=== PATIENT | male | born 1985 | race Caucasian/White ===

== ENCOUNTER 2023-05-24 10:26 | Outpatient (CLI) | payer OTHER, SELFPAY ==
--- NOTE | ~2023-05-24 | XR_ITS ---
EXAMINATION: XR abdomen/kub 1V INDICATION: Ureteral stone TECHNIQUE: Supine views of the abdomen were obtained on 2 radiographs. COMPARISON: 05/15/2023 FINDINGS: There has been minimal interval distal migration of the previously described left ureteral stone which now resides between the left L4 and L5 transverse processes. There are multiple phlebolit hs of the pelvis. No additional urolithiasis is identified. The bowel gas pattern is normal. The visu alized lung bases are clear. IMPRESSION: 1. Slight interval distal migration of the left ureteral stone. Reviewed, dictated and finalized at location F.
== END 2023-05-24 10:27 | disposition home or self-care (01) ==
PROVIDERS: PCP Internal Medicine; Visit Provider Nurse Practitioner Adult Health
DX: N20.1 Calculus of ureter (principal)
CPT/HCPCS: 74018

== ENCOUNTER 2023-06-05 10:04 | Outpatient (CLI) | payer OTHER, SELFPAY ==
--- NOTE | ~2023-06-05 | XR_ITS ---
XR abdomen/kub 1V 06/05/2023 10:19 INDICATION: Microhematuria TECHNIQUE: KUB COMPARISON: Comparison to multiple prior studies sequentially, with oldest reviewed study dated 05/04. FINDINGS: Bowel gas pattern is normal. There is no evidence of free air, mass, organomegaly, ascites or obstruction. No abnormal calculi are seen. The bones appear intact. There are pelvic phlebolith s. There are surgical changes of the right femur. IMPRESSION: 1: No acute abdominal abnormality identified. Reviewed, dictated and finalized at location B.
== END 2023-06-05 10:05 | disposition home or self-care (01) ==
PROVIDERS: PCP Internal Medicine; Visit Provider Nurse Practitioner Adult Health
DX: R31.29 Other microscopic hematuria (principal)
CPT/HCPCS: 74018

== ENCOUNTER 2023-07-04 08:04 | Emergency (ER) | payer OTHER, SELFPAY ==
--- NOTE | 2023-07-04 08:08 | ED.MALEGU ---
HPI - Male Genitourinary General Chief complaint: Urogenital-Male Stated complaint: UTI Time Seen by Provider: 07/04/23 08:08 Source: patient Mode of arrival: ambulatory Limitations: no limitations History of Present Illness HPI Narrative: Patient is a 38-year-old male that presents with left lower abdominal pain. Patient states he was told he had kidney stones bilaterally but past the 1 on the left as of the first of the month. Patient also reports some left testicular pain denies any swelling or tenderness on palpation. Denies any penile discharge, fever, chills, nausea, vomiting, diarrhea. Patient states he took Flomax and oxycodone and pain has improved. Patient states this is different than his normal pain with kidney stones . Patient denies any blood in urine or decreased urine output. Patient also denies any flank pain. Related Data Home Medications Medication Instructions Recorded Confirmed tamsulosin 0.4 mg capsule mg PO 07/04/23 Allergies Allergy/AdvReac Type Severity Reaction Status Date / Time Sulfa (Sulfonamide Allergy Unknown Other Verified 07/04/23 08:16 Antibiotics) Review of Systems Review of Systems: All systems reviewed & are unremarkable except as noted in HPI and below Constitutional: Constitutional: Denies chills, Denies fever(s), Denies headache(s), Denies malaise and Denies weakness Eyes: Eyes: Denies change in vision, Denies eye discharge and Denies irritation ENT: Denies otalgia, Denies headache(s), Denies nasal congestion, Denies nasal discharge, Denies sinus pain and Denies sore throat Cardiovascular: Cardiovascular: Denies chest pain, Denies edema, Denies palpitations and Denies dyspnea Respiratory: Respiratory: Denies cough and Denies dyspnea Gastrointestinal: Gastrointestinal: Reports abdominal pain, Denies diarrhea, Denies nausea and Denies vomiting Genitourinary: Genitourinary: Denies hematuria, Denies oliguria, Denies dysuria, Denies flank pain, Denies penile discharge, Denies scrotal swelling, Reports testicular pain and Denies urinary urgency Musculoskeletal: Musculoskeletal: Denies back pain and Denies numbness Integumentary/Breasts: Skin/Breast: Denies pruritus and Denies rash Neurologic: Denies headache(s), Denies numbness and Denies weakness Psychiatric: Psychiatric: Reports no additional psychiatric complaints Endocrine: Endocrine: Denies palpitations PMFSH Family History Family History Other Depression Family history of Alzheimer's disease Family history of attention deficit hyperactivity disorder (ADHD) Family history of cardiovascular disease Family history of seizure disorder Social History Social History Smoking status: Light tobacco smoker Alcohol intake: current Comments At time of signature, agree with nursing past medical, surgical, social and family history. There is no relevant family history pertinent to the presenting complaint. Exam Const: General: cooperative, healthy appearing, comfortable, no acute distress and well nourished Nutritional Appearance: well nourished Orientation/consciousness: patient oriented x3 HENMT: Head: normocephalic and atraumatic Ears: external ears normal Face/Nose/Sinus: Normal external nose present, Normal nares present and normal facial exam Face and sinus: normal facial exam Eyes: General: appearance normal, both eyes and all related structures Pupils: Equal, round and reactive pupils present EOM: EOMs intact bilaterally Neck: Neck: normal visual inspection, full ROM and supple Chest: Chest palpation & inspection: normal inspection of the chest Resp: Effort & Inspection: normal respiratory effort and able to speak in complete sentences Cardio: Rate: regular rate Rhythm: regular rhythm GI: Inspection: normal to inspection GI Palp: No abdominal tenderness, Yes Soft to palpati
[2023-07-04 08:15] VITALS: BP 121/76; PULSE 59; RESP 16; TEMP 36.7; O2SAT 100
== END 2023-07-04 09:11 | disposition home or self-care (01) ==
PROVIDERS: Emergency Provider Nurse Practitioner Family; PCP Internal Medicine
DX: N30.01 Acute cystitis with hematuria (principal); F17.200 Nicotine dependence, unspecified, uncomplicated
CPT/HCPCS: 81003; 87086; 87088; 99213; G0463

== ENCOUNTER 2023-07-04 20:12 | Emergency (ER) | payer OTHER, SELFPAY ==
--- NOTE | ~2023-07-04 | CT_ITS ---
EXAMINATION: CT abdomen pelvis wo con DATE: 07/04/2023 21:57 INDICATION: Nephrolithiasis presenting with flank pain TECHNIQUE: Computed tomography (CT) of the abdomen and pelvis was performed without intravenous contr ast. Automated exposure control and iterative reconstruction technique were employed. The dose-length product was 478.33 mGy-cm. COMPARISON: None FINDINGS: Lung bases are clear. Heart size is normal. No pericardial or pleural effusion. Liver, gallbladder, s pleen, pancreas and bilateral adrenal glands are normal. 6 x 3 x 3 mm stone in the distalmost left ur eter approximately 2 cm from the ureterovesicular junction with mild left hydroureteronephrosis and w ith left perinephric stranding. 2 mm stone in upper pole calyx of the right kidney. No right-sided ur eteral stones or hydronephrosis. Bladder is normal. Bowels including the appendix are normal. No free intraperitoneal gas or fluid. No pathologically enlarged abdominal or pelvic lymphadenopathy. Mild l ower thoracic and minimal lumbar spondylosis. IMPRESSION: 1. Bilateral nephrolithiasis with obstructing 6 x 3 x 3 mm stone in the distal left ureter with mild left hydronephrosis. Reviewed, dictated and finalized at location A. SUPERVISOR
[2023-07-04 20:17] VITALS: BP 128/69; PULSE 80; RESP 15; TEMP 36.6; O2SAT 100
[2023-07-04] MEDS: MORPHINE SULFATE (*CRX) 4 MG/ML INJ IV PUSH (21:40)
[2023-07-04] MEDS: ONDANSETRON INJ 4 MG/2 ML VIAL IV PUSH (21:40)
[2023-07-04] MEDS: SODIUM CHLORIDE 0.9% IV 1,000 ML 999 ML IV CONT (21:41)
[2023-07-04 21:42] LABS: Basophils Percent Auto 0.2 % (0.2-1.2); Eosinophils Absolute Auto 0.1 K/mm3 (0-0.3); Eosinophils Percent Auto 0.7 % (0-4.4); Hematocrit 41.3 % (42.0-52.0); Hemoglobin 13.3 g/dL (14.0-18.0); Immature Granulocyte Absolute 0.04 K/mm3 (0.00-0.031); Immature Granulocyte Percent A 0.3 % (0-0.5); Lymphocytes Absolute Auto 1.03 K/mm3 (0.9-3.2); Lymphocytes Percent Auto 8.1 % (18.3-44.2); Mean Corpuscular HGB Conc 32.2 g/dl (32-36); Mean Corpuscular Hemoglobin 30.5 pg (26-34); Mean Corpuscular Volume 94.7 fl (80-100); Mean Platelet Volume 10.3 fl (7.4-10.4); Monocytes Absolute Auto 1.5 K/mm3 (0.1-0.6); Monocytes Percent Auto 11.6 % (2.6-8.5); Neutrophils Absolute Auto 10.1 K/mm3 (1.3-6.7); Neutrophils Percent Auto 79.1 % (45.5-73.1); Platelet Count Result 292 k/mm3 (150-375); Red Blood Count 4.36 M/mm3 (4.6-6.20); Red Cell Distribution Width 13.3 % (11.5-14.5); White Blood Count 12.8 K/mm3 (4.5-10.0)
[2023-07-04 21:53] LABS: Alanine Aminotransferase 23 U/L (6-50); Albumin Level 4.3 g/dL (3.5-5.1); Alkaline Phosphatase 71 U/L (38-126); Anion Gap 12 mmol/L (8-16); Aspartate Amino Transferase 30 U/L (17-59); Bilirubin,Total 0.9 mg/dL (0.2-1.3); Blood Urea Nitrogen 17 mg/dL (9-20); Calcium 9.2 mg/dL (8.4-10.2); Carbon Dioxide 23 mmol/L (22-30); Chloride 102 mmol/L (98-107); Estimated CRCL calculation 51 ml/min; Estimated Glomerular Filt Rate 45; Glucose 106 mg/dL (65-110); Potassium 3.6 mmol/L (3.4-5.0); Sodium 137 mmol/L (137-145)
[2023-07-04 21:54] LABS: Bacteria Urine None Seen /hpf; Need Manual Microscopic Reviewed; Non Pathogenic Casts 0-2; RBC Urine 0-2 /hpf (0-2); Squamous Epithelial Cell Urine None seen /hpf (Few); WBC Urine 0-5 /hpf
[2023-07-04 21:55] LABS: Appearance Urine Clear (Clear); Blood Urine Negative (Negative); Color Urine Orange (Yellow); Glucose Urine UA Negative (Negative); Ketones Urine Negative (Negative); Specific Grav Ur 1.027 (1.001-1.035)
[2023-07-04 22:00] LABS: Calcium Oxalate Crystals Urine Present /hpf
[2023-07-04 22:03] LABS: Add Urine Microscopic? YES
[2023-07-04 22:10] VITALS: BP 118/68; PULSE 71; RESP 14; O2SAT 99
[2023-07-04] MEDS: HYDROmorphone HCL INJ (*CRX) 1 MG/ML SYR IV PUSH (22:46)
--- NOTE | 2023-07-04 22:51 | ED.GENADULT ---
HPI - General Adult General Chief complaint: Urogenital-Male Stated complaint: left flank pain Time Seen by Provider: 07/04/23 21:32 History of Present Illness HPI narrative: patient a 38-year-old gentleman presents emergency department chief complaint of left-sided flank pain radiating to the left groin area. The patient reports he was seen in urgent care started on antibiotics today for possible urinary infection. Patient had blood and leukocyte esterase in his urine but no white blood cells at urgent care. The patient states he has had kidney stones before in the past he reports that tonight he started having severe pain patient reports pain is not improved by anything and not worsened by anything. Related Data Home Medications Medication Instructions Recorded Confirmed tamsulosin 0.4 mg capsule mg PO 07/04/23 Allergies Allergy/AdvReac Type Severity Reaction Status Date / Time Sulfa (Sulfonamide Allergy Unknown Other Verified 07/04/23 08:16 Antibiotics) Review of Systems Review of Systems: A 10 system review of systems was completed on the patient and is negative except for what is stated in the HPI. Nursing and ancillary documentation was reviewed. PMFSH Family History Family History Other Depression Family history of Alzheimer's disease Family history of attention deficit hyperactivity disorder (ADHD) Family history of cardiovascular disease Family history of seizure disorder Social History Social History Smoking status: Light tobacco smoker Alcohol intake: current Exam Narrative: GENERAL: Well-appearing, well-nourished, and acute Pain distress. HEAD: Normocephalic, atraumatic. EYES: PERRLA and EOMI. ENT: Nares clear, no rhinorrhea or epistaxis. Mucous membranes moist. NECK: Supple. CHEST: Clear to auscultation. No respiratory distress. HEART: Regular rate and rhythm. No murmur heard. Normal peripheral pulses. ABDOMEN: Soft, nontender, nondistended, normal active bowel sounds. EXTREMITIES: Normal range of motion. No edema. SKIN: Warm, dry, no rash. NEURO: No focal deficits. Alert and oriented x3. PSYCH: Normal mood and affect. Course Vital Signs Vital signs: Vital Signs Temperature 36.6 C 07/04/23 20:17 Pulse Rate 80 07/04/23 20:17 Respiratory Rate 15 11/30/23 20:17 Blood Pressure 128/69 07/04/23 20:17 Pulse Oximetry 100 07/04/23 20:17 Oxygen Delivery Room Air 07/04/23 20:17 Temperature 36.6 C 07/04/23 20:17 Pulse Rate 71 07/04/23 22:10 Respiratory Rate 14 07/04/23 22:10 Blood Pressure 118/68 07/04/23 22:10 Pulse Oximetry 99 07/04/23 22:10 Oxygen Delivery Room Air 07/04/23 20:17 Medical Decision Making MDM Narrative Medical decision making narrative: differential diagnosis includes ureterolithiasis, pyelonephritis. Laboratory studies were obtained showed a normal CBC with a white count of 12.8 electrolytes showed a creatinine of 1.7 with normal BUN liver enzymes are normal urinalysis showed calcium oxalate crystals present 0-5 white blood cells and no bacteria. CT scan of the abdomen pelvis showed a 6 x 3 x 3 mm kidney stone that is distal on the left side proximally 2 cm from the UVJ. Vital Signs Vital Signs: Vital Signs Temperature 36.6 C 07/04/23 20:17 Pulse Rate 80 07/04/23 20:17 Respiratory Rate 15 07/04/23 20:17 Blood Pressure 128/69 07/04/23 20:17 Pulse Oximetry 100 07/04/23 20:17 Oxygen Delivery Room Air 07/04/23 20:17 Temperature 36.6 C 07/04/23 20:17 Pulse Rate 71 07/04/23 22:10 Respiratory Rate 14 07/04/23 22:10 Blood Pressure 118/68 07/04/23 22:10 Pulse Oximetry 99 07/04/23 22:10 Oxygen Delivery Room Air 07/04/23 20:17 Lab Data 07/04/23 21:35 07/04/23 21:35 Labs: Lab Results
[2023-07-04 23:30] VITALS: BP 120/70; PULSE 90; RESP 19; O2SAT 99
[2023-07-05] VITALS: BP 117/68; PULSE 70; RESP 19; O2SAT 97
[2023-07-05 01:10] VITALS: BP 121/74; PULSE 66; RESP 15; O2SAT 99
[2023-07-05] MEDS: TAMSULOSIN HCL 0.4 MG CAPSULE PO (01:11)
== END 2023-07-05 01:10 | disposition home or self-care (01) ==
PROVIDERS: Emergency Provider Emergency Medicine; PCP Internal Medicine
DX: N20.1 Calculus of ureter (principal); F17.200 Nicotine dependence, unspecified, uncomplicated
CPT/HCPCS: 36415; 74176; 80053; 81001; 81003; 85025; 87086; 96361; 96374; 96375; 99284; A9270; J1170; J2270; J2405; J7030

== ENCOUNTER 2023-07-23 11:19 | Outpatient (CLI) | payer OTHER, SELFPAY ==
--- NOTE | ~2023-07-23 | XR_ITS ---
EXAMINATION: XR abdomen/kub 1V INDICATION: Left ureteral stone TECHNIQUE: Supine views of the abdomen were obtained on 2 radiographs. COMPARISON: 06/05/2023; CT, 07/04/2023 FINDINGS: There appears to be a persistent 6 mm stone of the distal left ureter. No additional urolit hiasis is identified. Phleboliths are present in the pelvis. The bowel gas pattern is normal. The vis ualized lung bases are clear. IMPRESSION: 1. Stable 6 mm stone of the distal left ureter. Reviewed, dictated and finalized at location L. [employer] SUPERVISOR
== END 2023-07-23 11:20 | disposition home or self-care (01) ==
PROVIDERS: PCP Internal Medicine; Visit Provider Physician Assistant
DX: N20.1 Calculus of ureter (principal)
CPT/HCPCS: 74018

== ENCOUNTER 2023-10-14 15:27 | Outpatient (CLI) | payer OTHER, SELFPAY ==
--- NOTE | ~2023-10-14 | XR_ITS ---
Supine and upright views of the abdomen Clinical history: Kidney stone COMPARISON: 07/23/2023 Findings: Bowel gas pattern is nonspecific. No evidence for obstruction or free air. Stable pelvic ca lcifications, presumed calcified phleboliths. Osseous structures are intact. Impression: Stable presumed calcified pelvic phleboliths. Reviewed, dictated and finalized at [facility]. Impression: Stable presumed calcified pelvic phleboliths.
== END 2023-10-14 15:28 | disposition home or self-care (01) ==
LOC: ANHIMG 15:29
PROVIDERS: PCP Internal Medicine; Visit Provider Nurse Practitioner Adult Health
DX: N20.1 Calculus of ureter (principal)
CPT/HCPCS: 74018

== ENCOUNTER 2024-01-30 01:11 | Day surgery (SDC) | payer OTHER, SELFPAY ==
[2024-01-27 09:43] VITALS: BMI 25.9
--- NOTE | 2024-01-27 09:50 | PC.NURSE ---
Report to the Outpatient Waiting Room, entrance under the green pavilion located off [facility], at time _0600_ on date _[id number]_. Planned Procedure Time: _0730_. Time changes happen often and if your time is changed the preop area will call you the afternoon before. - You and your visitor will be asked to self-screen and do not enter if you have any COVID symptoms. - A mask is optional within the hospital at this time. Patients may have clear liquids (water, carbonated beverages, clear teas, apple juice) until 3 hours prior to surgery with a maximum of 20 ounces. - No food from midnight until time of surgery Take the following medications with a SIP of water the morning of surgery: ___None DO NOT STOP ANY OF YOUR OTHER PRESCRIPTION MEDICATIONS PRIOR TO SURGERY ?EXCEPT THE FOLLOWING Medications to discontinue per physician None___ Date to take last dose Please no make-up, nail kyrgyz, hairspray, perfume, deodorant, or body powder the day of surgery. No jewelry (including any body piercings) or valuables the day of surgery, leave them at home. Please take a shower or bath the night before, or the morning of, surgery with an antibacterial soap. Wear comfortable, loose fitting clothing. - Jewelry must be removed prior to entering the operating room. Rings and piercings that are not removed may be cut off. - The hospital will not accept responsibility for valuables. - Please leave all valuables, including medications, at home the day of surgery. If you are going home after surgery, a licensed regional company flatbed truck driver must drive you home. - NO public transportation without another adult if you receive anesthesia. - We recommend that an adult stay with you for 24 hours following discharge. - We also recommend that you do not drive, make important decision, drink alcoholic beverages, or take any drugs that were not prescribed by your health care provider for at least 24 hours after your discharge time. Follow any additional instructions given to you from your surgeon. If you or anyone in your household have experienced Covid symptoms in the past week, please notify your surgeon or the nurse liaison at the phone number below for possible testing. Telephone instructions given to __Matt__and asked if any additional questions and then verbalized understanding. Patient advised to call surgeon office or pre surgery nurse liaison [phone] if any additional questions.
--- NOTE | 2024-01-28 17:09 | P.HP_ITS ---
History of Present Illness History of Present Illness Consent: Risks, benefits, and alternatives have been discussed and questions answered. Patient agrees to proceed with procedure. Chief complaint: Left Ureteral Stones Narrative: Henrique Pulliam is a 38 year old male Who was found to have a obstructing left distal ureteral calculus in late July/early August. I have not seen the patient since and there has been significant difficulty getting this procedure scheduled. Ultimately, however, he presents now for cystoscopy with left ureteroscopy with stone extraction, possible laser lithotripsy, retrograde pyelography and stent placement. I have made him aware of the risks including, but not limited to, need for additional procedures. Possibility of an indwelling stent that would need to be removed, hematuria and ureteral injury. additionally, he had a nonobstructing right renal calculus which we will not address today. Review of Systems Review of Systems: All systems reviewed & are unremarkable except as noted in HPI and below PMFSH Family History Family History Other Depression Family history of Alzheimer's disease Family history of attention deficit hyperactivity disorder (ADHD) Family history of cardiovascular disease Family history of seizure disorder Social History Social History Smoking status: Current some day smoker Tobacco type: cigars Additional smoking assessment comments: 7-8 a month Alcohol intake: current Drinks per week: 2 Living arrangements: with family Spiritual care concerns: No Meds Home Medications and Allergies Home Medications Medication Instructions Recorded Confirmed Type tamsulosin 0.4 mg capsule 0.4 mg PO QAM 07/04/23 01/27/24 History Allergies Allergy/AdvReac Type Severity Reaction Status Date / Time Sulfa (Sulfonamide Allergy Unknown Other Verified 01/27/24 09:42 Antibiotics) Exam Const: General: no acute distress Resp: Effort & Inspection: normal respiratory effort GI: Inspection: non-distended GI Palp: No abdominal tenderness and No Guarding due to palpation present (GI) Auscultation: normal bowel sounds Assessment and Plan Assessment and plan (1) Left ureteral stone: Code(s): N20.1 - Calculus of ureter Status: Acute Assessment and Plan: * Cystoscopy, left ureteroscopy with stone extraction, possible laser lithotripsy, retrograde pyelography and stent placement
--- NOTE | ~2024-01-30 | CT_ITS ---
Non-contrast CT scan of the Abdomen and Pelvis Clinical indication: Left ureteral stone Technique: 2.5 mm axial scans were obtained through the abdomen and pelvis without intravenous or or al contrast. Dose reduction technique was used on this scan by utilizing automated exposure control a nd iterative reconstruction technique. The dose-length product (DLP) was 221.58 mGy-cm. COMPARISON: 12/04/2023 Findings: Images through the lung bases reveal no abnormalities. 2 mm nonobstructing right renal stone is unchanged. No right ureteral stone or right hydronephrosis. There is a 5 mm distal left ureteral stone, unchanged in position from prior exam (axial image 158), without hydronephrosis. Possible minimal medullary nephrocalcinosis bilaterally. The liver, spleen, pancreas, gallbladder, and adrenals appear normal. There is no aortic aneurysm. There is no evidence of bowel obstruction. Images through the pelvis were performed. There is no evidence of ascites or lymphadenopathy. Urinary bladder unremarkable. No pelvic mass seen. Impression: 5 mm distal left ureteral stent is unchanged in position from prior exam. No hydronephrosis. Stable 2 mm nonobstructing right renal stone. Possible minimal medullary nephrocalcinosis bilaterally. Reviewed, dictated and finalized at location . Impression: 5 mm distal left ureteral stent is unchanged in position from prior exam. No hy dronephrosis. Stable 2 mm nonobstructing right renal stone. Possible minimal medullary nephrocalcinosis bilaterally.
--- NOTE | ~2024-01-30 | XR_ITS ---
EXAMINATION: XR fluoroscopy no charge DATE: 01/30/2024 07:45 INDICATION: Left ureteral stone. TECHNIQUE: 2 intraoperative fluoroscopic views of the abdomen and pelvis were obtained. I was not pre sent. Fluoroscopy exposure time was 8 seconds. COMPARISON: CT abdomen and pelvis 01/30/2024 FINDINGS: There is no visible urolithiasis. Images demonstrate a wire in left ureter. IMPRESSION: 1. No visible urolithiasis. Reviewed, dictated and finalized at location A. IMPRESSION: 1. No visible urolithiasis.
--- NOTE | 2024-01-30 05:57 | WPDHPUPDATE1 ---
History and Physical Update Update Date/Time: 01/30/24 05:57 History and Physical has been reviewed, including an updated exam of the patient. There are NO changes in the patient's condition. Risks, benefits, and alternatives have been discussed and questions answered. Patient agrees to proceed with procedure.
[2024-01-30 06:30] VITALS: BP 117/78; PULSE 56; RESP 16; TEMP 36.6; O2SAT 97
--- NOTE | 2024-01-30 06:51 | P.PNAN_ITS ---
Anes - Initial Pre Proc Eval Procedure: Operation Date: 01/30/24 07:30 Proposed Procedures p Cystoscopy, Left Ureteroscopy, Left Stone Extraction, Possible Holmium Laser Lithotripsy, Left Retrograde Pyelogram,Left Stent Placement - Bolivar Early MD Date/Time: 01/30/24 06:51 Surgeon: Bolivar Early MD Pre Op Diagnosis: Left Ureteral Stones Patient Data Age: 38 Gender: M Height: 1.73 m Weight: 77.3 kg Allergies Allergy/AdvReac Type Severity Reaction Status Date / Time Sulfa (Sulfonamide Allergy Unknown Other Verified 01/27/24 09:42 Antibiotics) Home Medications Medication Instructions Recorded Confirmed Type tamsulosin 0.4 mg capsule 0.4 mg PO QAM 07/04/23 01/27/24 History Patient hx anesthesia problems: none Family hx anesthesia problems: none Results Review: All pre-operative results and documents have been reviewed as part of the pre- operative evaluation. PMFSH Family History Family History Other Depression Family history of Alzheimer's disease Family history of attention deficit hyperactivity disorder (ADHD) Family history of cardiovascular disease Family history of seizure disorder Social History Social History Smoking status: Current some day smoker Tobacco type: cigars Additional smoking assessment comments: 7-8 a month Alcohol intake: current Drinks per week: 2 Living arrangements: with family Spiritual care concerns: No Anes - Eval Final PreProcedure Day of Procedure 01/30/24 06:51 Patient weight: normal Heart: regular rate and rhythm Lungs: clear to auscultation Airway: Mallampati scale class II Neurological: alert and oriented Last oral intake: >/= 8 hours ASA classification: II Emergent: no Anesthetic plan: proceed Anesthesia type and monitoring: general LMA and standard monitoring Results Review: All pre-operative results and documents have been reviewed as part of the pre- operative evaluation. Informed Consent: The patient's anesthetic plan and its attendant risks and benefits were discussed with the patient/family/POA. Questions were solicited and answers provided to the satisfaction of the patient/family/POA.
[2024-01-30] MEDS: LACTATED RINGERS 1,000 ML 30 ML IV CONT (07:00)
[2024-01-30] MEDS: ceFAZolin 2 GM/D5W 50 ML 2 GM/50 ML BAG IVPB (07:18)
[2024-01-30] MEDS: KETOROLAC 30 MG/ML VIAL (*BKC) IV PUSH (07:41)
[2024-01-30] MEDS: LIDOCAINE HCL 2% GEL UROJET 10 ML PKG MUCOUS MEM (07:41)
[2024-01-30 07:48] VITALS: BP 103/64; PULSE 61; RESP 10; TEMP 36.4; O2SAT 99
[2024-01-30 08:00] VITALS: BP 90/56; PULSE 46; RESP 14; O2SAT 100
--- NOTE | 2024-01-30 08:01 | P.OP_ITS ---
Procedure Note - Detailed Date of Procedure 01/30/24 Pre-op Diagnosis Left Ureteral Stones Post-op Diagnosis Same Procedure Performed Cystoscopy, left ureteroscopy with stone extraction Surgeon Bolivar Early MD Anesthesia General Description of Procedure The patient was brought to the operative suite where he is prepped and draped in a routine sterile fashion while in the dorsal lithotomy position after the uneventful induction of a general LMA anesthetic. A 19F rigid cystoscope was placed in the bladder. There are no urethral strictures. His prostatic urethra measures, approximately, 1.0cm with no median lobe enlargement. The bladder mucosa was endoscopically normal without hyperemia or neoplasm. There was a single, orthotopic ureteral orifice bilaterally. A 0.035 glidewire was advanced into the left renal pelvis under fluoroscopy. The distal ureter was dilated with an 8F/10F ureteral dilator. Ureteroscopy was undertaken with a short, tapered, semi-rigid ureteroscope and the stone was extracted with ease using a 1.9F Escape disposable stone basket. Due to the ease of this manipulat ion I opted not to place a ureteral stent. The patient's bladder was emptied and was taken to the recovery room having tolerated this procedure well. Drains No Packing No Pathology Yes Complications No immediate complications
[2024-01-30 08:15] VITALS: BP 90/59; PULSE 54; RESP 18; O2SAT 100
[2024-01-30 08:18] VITALS: BP 104/66; PULSE 45; RESP 18
[2024-01-30 08:45] VITALS: BP 107/67; PULSE 61; RESP 16
== END 2024-01-30 09:00 | disposition home or self-care (01) ==
PROVIDERS: PCP Internal Medicine; Visit Provider Urology
PROC: (CPT 52352; principal; 2024-01-30 07:30)
DX: N20.1 Calculus of ureter (principal); F17.290 Nicotine dependence, other tobacco product, uncomplicated
CPT/HCPCS: 52352; 74176; 82365; 88300; 99199; C1758; C1769; J0690; J1100; J1885; J2250; J2405; J2704; J3010; J7120; Q9966